=== PATIENT | female | born 1965 | race Caucasian/White ===

== ENCOUNTER 2017-03-03 07:20 | Emergency (ER) | payer BC ==
[2017-03-03] MEDS ORDERED: KETOROLAC TROMETHAMINE 30 MG/ML VIAL IV ONE (07:41)
[2017-03-03] MEDS ORDERED: ONDANSETRON HCL/PF 2 MG/ML VIAL IV ONE ×2 (07:41→11:17)
[2017-03-03] MEDS ORDERED: KETOROLAC TROMETHAMINE 30 MG/ML VIAL ONE (07:42)
[2017-03-03] MEDS ORDERED: ONDANSETRON HCL/PF 2 MG/ML VIAL ONE ×2 (07:42→11:15)
[2017-03-03] MEDS ORDERED: NORMAL SALINE 1,000 ML IV ONE ×2 (07:42→10:45)
--- NOTE | 2017-03-03 07:48 | ERNOTE ---
<Antonio Krishna - Last Filed: 03/03/17 07:57> ER Female HPI Stated Complaint: KIDNEY STONE Time Seen by Provider: 03/03/17 07:46 Source: patient, family Exam Limitations: no limitations Immunizations: IMMUNIZATION HX Immunizations Up to Date Yes Allergies/Adverse Reactions: Allergies Penicillins Allergy (Verified 03/03/17 07:36) Home Medications: HOME MEDICATIONS Tamsulosin HCl [Flomax] 0.4 mg PO DAILY #7 tab 03/03/17 [Last Taken Unknown] oxyCODONE HCL/ACETAMINOPHEN [Percocet 5 MG/325 MG] 1 - 2 tab PO Q6H PRN #15 tab 03/03/17 [Last Taken Unknown] - History of Present Illness Narrative: Left flank pain onset at 06:10. Now in LLQ. Timing: Present: getting worse Quality: Present: severe, sharpness, stabbing Onset Location: Present: left flank Radiation: Present: LLQ Activities at Onset: Present: none Associated Symptoms: Present: urinary frequency Review of Systems - Review of Systems Constitutional: Absent: recent illness, fever EYE: Present: no symptoms reported ENT: Present: no symptoms reported Respiratory: Present: no symptoms reported Cardiology: Present: no symptoms reported Gastrointestinal/Abdominal: Present: See HPI, nausea, vomiting Genitourinary: Present: See HPI, frequency, hematuria. Absent: dysuria Musculoskeletal: Present: no symptoms reported Skin: Present: no symptoms reported Neurological: Present: no symptoms reported Endocrine: Present: no symptoms reported Hematologic/Lymphatic: Present: no symptoms reported Psych: Present: no symptoms reported - Patient's Past Medical History Patient History - Medical: No pertinent hx Patient History - Cardiac/Respiratory: No pertinent hx Patient History - Cancer: No Hx of Cancer Patient History - Surgical Procedures: No surgical history - Social History Smoking Status: Never smoker Have you smoked in the past 12 months: No - Immunizations Immunizations Up to Date: Yes Physical Exam - Physical Exam General Appearance: Present: wd/wn, alert, moderate distress Head Exam: Present: normal inspection, no evidence of injury Respiratory: Present: no respiratory distress, normal breath sounds, lungs clear Cardiovascular/Chest: Present: regular rate, rhythm, no murmur Gastrointestinal/Abdominal: Present: normal bowel sounds, nontender, nondistended, soft Back Exam: Present: normal inspection, no vertebral tenderness Extremity Exam: Present: normal inspection, normal range of motion Neurological Exam: Present: alert, oriented Skin Exam: Present: diaphoresis, pallor Lymphatic Exam: Present: no adenopathy ED Progress - Vital Signs Vital Signs: Vital Signs 03/03/17 07:33 Temperature 35.8 C L Pulse Rate 73 Respiratory 18 Rate Blood Pressure 187/101 O2 Sat by Pulse 98 Oximetry - Progress/Reassessment Chief Complaint: Genitourinary Problem - Transfer of Care Physician Sign Out: Antonio Krishna Receiving Physician: Kelechi Vargas Pending Results: Labs, Pain-control Expected Disposition: Discharge Departure Clinical Impression: Kidney stone on left side - Departure Disposition: Home self-care Condition: Good Instructions: Kidney Stones, [id number] Additional Instructions: You have an appointment with Dr Reid TOMORROW at 12:45, please be there for a re-check. I spoke with her via telephone. Take medications as directed. No driving. Return here if you change your mind about being observed in the hospital, develop fever, increased pain or if your condition worsens or changes in any way. Referrals: Michelle Reid MD [Primary Care Provider] - Prescriptions: oxyCODONE HCL/ACETAMINOPHEN [Percocet 5 MG/325 MG] 1 - 2 tab PO Q6H PRN #15 tab PRN Reason: Pain Tamsulosin HCl [Flomax] 0.4 mg PO DAILY #7 tab <Kelechi Vargas - Last Filed: 03/03/17 12:28> ER Female HPI Immunizations: IMMUNIZATION HX Immunizations Up to Date Yes ED Progress - Results and Orders Patient's Lab Results:: I have reviewed the patient's lab results. - Vital Signs Patient's Vital Signs:: I have reviewed the patient's vital signs. Vital Signs: Vital Signs 03/03/17 03/03/17 03/03/17 07:33 08:14 09:59 Temperature 35.8 C L Pulse Rate 73 55 L 62 Respiratory 18 12 15 Rate Blood Pressure 187/101 184/79 154/86 O2 Sat by Pulse 98 100 96 Oximetry - CT/Ultrasound CT/Ultrasound Narrative: I reviewed official radiology report - Progress/Reassessment Progress Note-Subjective: 03/03/17 12:25 patient checked out to me by Dr Prasad at shift change, please see his note. Patient has 3/7mm left distal UVJ stone c/w her Sx. Elevation of her Lipase but normal amylase. This is of unclear significance but she clearly has acute kidney stone. Patient was feeling much improve. I offered her hospital admission for obs and pain control and further testing but she declines this and wishes to go home. She understands risks and beenfits. I am not sure what the significance of the elevated lipase and normal amylase is in this setting. She understands this but wishes outpatient management. I spoke with Dr Reid her PCP and an office appointment was scheduled for her tommorrow for a re-check. She understands risks and benefits, I stressed warning signs and reasons to return as well as the need for close f/u. I toldf her she could return at any time to be admitted if she changed her mind about being in the hospital.
[2017-03-03 07:57] LABS: Hematocrit 37.8 % (37.0-47.0); Hemoglobin 12.9 gm/dL (12.5-16.0); Mean Cell Volume 87.7 fl (78-100); Mean Corpuscular Hemoglobin 29.9 pg (27-31); Mean Corpuscular Hgb Conc 34.1 g/dl (32-36); Mean Platelet Volume 12.2 fl (6.0-9.5); Neutrophil # 4.4 K/mm3 (1.3-6.0); Neutrophil % 63.1 % (42-75.0); Platelet Count 214 K/mm3 (150-450); Red Blood Count 4.31 M/mm3 (4.2-5.4); Red Cell Distribution Width 12.7 % (11.5-14.0)
[2017-03-03] MEDS ORDERED: HYDROmorphone HCL 1 MG/ML DISP.SYRIN IV ONE ×3 (08:08→10:42)
[2017-03-03] MEDS ORDERED: HYDROmorphone HCL 1 MG/ML DISP.SYRIN ONE ×3 (08:09→10:48)
[2017-03-03 08:12] LABS: Albumin * 3.6 gm/dl (3.4-5.0); Anion Gap 14.8 mmol/L (6.8-13.8); BUN/Creatinine Ratio 14.9 (9.0-21.6); Bilirubin, Total 0.3 mg/dL (0.0-1.1); Potassium 3.8 mmol/L (3.4-4.6); Total Protein 7.6 gm/dL (6.2-8.2)
[2017-03-03 08:54] LABS: Urine Bilirubin Negative (NEGATIVE); Urine Blood Negative /ul (NEGATIVE); Urine Ketone Negative (NEGATIVE); Urine Nitrite Negative (NEGATIVE); Urine Protein Negative (NEGATIVE); Urine Urobilinogen Normal (NORMAL)
[2017-03-03 09:06] LABS: Urine Appearance Clear; Urine Bacteria None Seen; Urine Color Yellow; Urine RBC None Seen /hpf (0-5); Urine WBC None Seen /hpf (0-5)
[2017-03-03] MEDS ORDERED: oxyCODONE HCL/ACETAMINOPHEN 1 TAB TABLET PO ONE (10:42)
[2017-03-03] MEDS ORDERED: TAMSULOSIN HCL 0.4 MG CAP.SR.24H PO ONE ×2 (10:42→10:49)
[2017-03-03] MEDS ORDERED: oxyCODONE HCL/ACETAMINOPHEN 1 TAB TABLET ONE (10:48)
[2017-03-03 12:05] VITALS: BP 146/63
[2017-03-03] MEDS ORDERED: ONDANSETRON 4 MG TAB.RAPDIS ONE (12:17)
[2017-03-03] MEDS ORDERED: ONDANSETRON 4 MG TAB.RAPDIS PO ONE (12:28)
== END 2017-03-03 12:38 | disposition home or self-care (01) ==
LOC: ER 07:20
DX: N20.0 Calculus of kidney (principal)
CPT/HCPCS: 36415; 74176; 80053; 81001; 82150; 83690; 85025; 96374; 96375; 99285; J2405

== ENCOUNTER 2017-03-04 12:44 | Inpatient (IN) | payer BC ==
[2017-03-04] MEDS ORDERED: HYDROmorphone HCL 1 MG/ML DISP.SYRIN IV ONE ×5 (13:00→16:21)
[2017-03-04] MEDS ORDERED: NORMAL SALINE 1,000 ML IV ONE ×2 (13:00→14:37)
[2017-03-04 13:16] LABS: Hematocrit 36.9 % (37.0-47.0); Hemoglobin 12.2 gm/dL (12.5-16.0); Mean Corpuscular Hemoglobin 29.8 pg (27-31); Mean Corpuscular Hgb Conc 33.1 g/dl (32-36); Mean Platelet Volume 12.4 fl (6.0-9.5); Neutrophil # 5.1 K/mm3 (1.3-6.0); Neutrophil % 65.5 % (42-75.0); Platelet Count 193 K/mm3 (150-450); Red Cell Distribution Width 13.2 % (11.5-14.0); White Blood Count 7.8 K/mm3 (4.0-10.5)
[2017-03-04 13:33] LABS: Albumin * 3.6 gm/dl (3.4-5.0); Anion Gap 13.7 mmol/L (6.8-13.8); BUN/Creatinine Ratio 12.4 (9.0-21.6); Bilirubin, Total 0.2 mg/dL (0.0-1.1); Ca. Corrected For Albumin 8.6 mg/dL (8.4-10.2); Calcium * 8.6 mg/dL (7.9-10.9); Carbon Dioxide 25.3 mmol/L (24-32.6); Total Protein 7.5 gm/dL (6.2-8.2)
[2017-03-04] MEDS ORDERED: HYDROmorphone HCL 1 MG/ML DISP.SYRIN ONE ×5 (13:35→16:30)
[2017-03-04] MEDS ORDERED: PROMETHAZINE HCL 25 MG/ML AMPUL IM ONE (13:51)
[2017-03-04] MEDS ORDERED: PROMETHAZINE HCL 25 MG/ML AMPUL ONE (13:52)
[2017-03-04 14:08] LABS: Urine Bilirubin Negative (NEGATIVE); Urine Blood 25 /ul (NEGATIVE); Urine Ketone 5 mg/dL (NEGATIVE); Urine Nitrite Negative (NEGATIVE); Urine Protein Negative (NEGATIVE); Urine Specific Gravity 1.025 SP.GR. (1.005-1.010); Urine Urobilinogen Normal (NORMAL)
[2017-03-04 14:33] LABS: Urine Appearance Clear; Urine Bacteria TRACE; Urine Color Yellow; Urine WBC TRACE /hpf (0-5)
--- NOTE | 2017-03-04 15:36 | ERNOTE ---
ER Female HPI Date of Service: 03/04/17 Stated Complaint: KIDNEY STONE Time Seen by Provider: 03/04/17 12:51 Source: patient, family Exam Limitations: no limitations Immunizations: IMMUNIZATION HX Immunizations Up to Date Yes Allergies/Adverse Reactions: Allergies Penicillins Allergy (Verified 03/04/17 12:56) Home Medications: HOME MEDICATIONS Tamsulosin HCl [Flomax] 0.4 mg PO DAILY #7 tab 03/03/17 [Last Taken Unknown] oxyCODONE HCL/ACETAMINOPHEN [Percocet 5 MG/325 MG] 1 - 2 tab PO Q6H PRN #15 tab 03/03/17 [Last Taken 03/04/17 1200] - History of Present Illness Narrative: Patient presents to the ED for severe left flank and abdominal pain. I saw her yesterady and she had a 3.7mm UVJ stone by CT. her pain has not been controlled as outpatient. She has severe left flank pain now, same as yesterday. Worse throughout the day. Nausea. No CP or SOB. No fever or change in urine. Has not passed the stone, no stone noted in strainer. Timing: Present: constant, getting worse Quality: Present: severe Onset Location: Present: right flank Radiation: Present: LLQ Modifying Factors - (Improves): Present: other - nothing Modifying Factors - (Worsens): Present: other - nothing Associated Symptoms: Present: nausea. Absent: fever/chills Prior Treatment: Present: recently seen, treated by physician Review of Systems - Review of Systems Constitutional: Absent: fever ENT: Absent: sore throat Respiratory: Absent: shortness of breath Cardiology: Absent: chest pain Gastrointestinal/Abdominal: Present: See HPI Genitourinary: Present: See HPI Musculoskeletal: Present: back pain Neurological: Absent: weakness - Patient's Past Medical History Patient History - Medical: Kidney stone Patient History - Cardiac/Respiratory: No pertinent hx Patient History - Cancer: No Hx of Cancer Patient History - Surgical Procedures: No surgical history - Social History Smoking Status: Never smoker - Immunizations Immunizations Up to Date: Yes Physical Exam - Physical Exam General Appearance: Present: alert, moderate distress Head Exam: Present: normal inspection, no evidence of injury Eye Exam: Normal inspection: bilateral, PERRL: bilateral Ears, Nose, Throat: Present: normal ENT inspection Neck: Present: normal inspection Respiratory: Present: no respiratory distress, normal breath sounds, no accessory muscle use, lungs clear Cardiovascular/Chest: Present: regular rate, rhythm, normal peripheral pulses Gastrointestinal/Abdominal: Present: normal bowel sounds, nontender, soft Back Exam: Present: CVA tenderness (L) Extremity Exam: Present: normal inspection Neurological Exam: Present: alert, no motor/sensory deficits Skin Exam: Present: normal color, warm/dry ED Progress - Results and Orders Patient's Lab Results:: I have reviewed the patient's lab results. - Vital Signs Patient's Vital Signs:: I have reviewed the patient's vital signs. Vital Signs: Vital Signs 03/04/17 03/04/17 03/04/17 12:54 14:28 15:02 Temperature 36.3 C L Pulse Rate 59 L 51 L 55 L Respiratory 18 16 12 Rate Blood Pressure 202/87 202/94 196/82 O2 Sat by Pulse 98 98 94 Oximetry - Progress/Reassessment Chief Complaint: Genitourinary Problem Progress Note-Subjective: 03/04/17 15:34 IV fluids and pain medications given. Intractable pain from her kidney stone. Her lipase has normalized. D/E Dr Maciel who will admit. D/E Dr garner's nurse and consult placed, he will see her tomorrow. Pt agreeable to admisson. Departure Clinical Impression: Kidney stone, Intractable pain - Departure Disposition: [facility] Condition: Stable
[2017-03-04] MEDS ORDERED: KETOROLAC TROMETHAMINE 30 MG/ML VIAL IV ONE (16:21)
[2017-03-04] MEDS ORDERED: LORazepam 2 MG/ML DISP.SYRIN IV ONE (16:24)
--- NOTE | 2017-03-04 16:29 | HP ---
Chief Complaint - Chief Complaint Date of Service: 03/04/17 Time of Service: 16:29 Chief Complaint: left flank pain, intractable History of Present Illness: Mayda Carlson, is 51-year-old white female, patient of Dr. Reid, without significant past medical history in the past, who was admitted on 03/04/2017 because of severe left flank pain and abdominal pain. One day prior to admission, the patient suddenly experienced left flank pain described as sharp, 10/10, associated with nausea and vomiting. The pain radiated down to her left lower quadrant. She went to our emergency room where she was found to have a kidney stone, 3.7 mm at the left UVJ junction with moderate hydronephrosis. There was also some stranding of her pancreatic area. Her lipase was 1001. She was given Toradol and IV fluids and was sent home on Flomax and Percocet. The patient was doing fine and and initially thought that he she had passed out the stone as she was no longer experiencing the pain until around 12:30 this afternoon when she again suddenly felt the same left flank pain radiating to her left lower quadrant. She came back to the emergency room where she was admitted for further evaluation and treatment. Her lipase was down to normal this time. Her CT scan doen yesterday also showed a complicated left kidney cyst. Urology was consulted and she is going to be seen tomorrow. She denied any fever or chills, denied any dysuria or increased frequency or urinary retention. She had nausea but no vomiting this time. - Patient's Past Medical History Patient History - Medical: Kidney stone Patient History - Cardiac/Respiratory: No pertinent hx Patient History - Cancer: No Hx of Cancer Patient History - Surgical Procedures: No surgical history - Family History Mother Family History - Medical: Arthritis Family History - Cardiac/Respiratory: Hypertension Family History - Cancer: Other Father Family History - Medical: , Other Family History - Cardiac/Respiratory: History Unknown Family History - Cancer: History Unknown Brother Family History - Medical: Arthritis Family History - Cardiac/Respiratory: No pertinent hx Family History - Cancer: No pertinent family hx Sister Family History - Medical: Arthritis Family History - Cardiac/Respiratory: History Unknown Family History - Cancer: No pertinent family hx - Social History Smoking Status: Never smoker - Immunizations Immunizations Up to Date: Yes Review Of Systems (GEN) - Review of Systems Generalized/Overall Review: Absent: Chills, Fever Respiratory: Absent: Cough, Shortness of Breath Cardiac: Absent: Chest Pain, Palpitations Abdominal: Present: Nausea, Abdominal Pain. Absent: Vomiting Genitourinary: Present: Other - left flank pain. Absent: Urgency, Frequency Immunizations: IMMUNIZATION HX Immunizations Up to Date Yes Allergies/Adverse Reactions: Allergies Allergy/AdvReac Type Severity Reaction Status Date / Time Penicillins Allergy Verified 03/04/17 12:56 Home Medications: HOME MEDICATIONS Tamsulosin HCl [Flomax] 0.4 mg PO DAILY #7 tab 03/03/17 [Last Taken Unknown] oxyCODONE HCL/ACETAMINOPHEN [Percocet 5 MG/325 MG] 1 - 2 tab PO Q6H PRN #15 tab 03/03/17 [Last Taken 03/04/17 1200] Exam - Exam Vital Signs: Vital Signs - Last Taken Temp 36.3 C L 03/04/17 12:54 Pulse 64 03/04/17 15:54 Resp 14 03/04/17 15:54 BP 197/83 03/04/17 15:54 Pulse Ox 93 03/04/17 15:54 Constitutional: Present: Alert, Oriented x3, Cooperative ENT Exam: Present: hearing grossly normal Eye Exam: bilateral eye: normal inspection, PERRL, EOMI Neck: Present: supple Back Exam: Present: CVA tenderness (L) Respiratory: Present: normal breath sounds, No rales, No wheezing Cardiovascular/Chest: Present: regular rate, rhythm, no JVD, no murmur Abdomen: Present: Normal bowel sounds, soft, tender - LLQ, hypoactive Extremity: Present: no pedal edema, no calf tenderness Diagnostic Studies: Laboratory Results WBC 7.8 K/mm3 (4.0-10.5) 03/04/17 13:15 RBC 4.10 M/mm3 (4.2-5.4) L 03/04/17 13:15 Hgb 12.2 gm/dL (12.5-16.0) L 03/04/17 13:15 Hct 36.9 % (37.0-47.0) L 03/04/17 13:15 MCV 90.0 fl (78-100) 03/04/17 13:15 MCH 29.8 pg (27-31) 03/04/17 13:15 MCHC 33.1 g/dl (32-36) 03/04/17 13:15 RDW 13.2 % (11.5-14.0) 03/04/17 13:15 Plt Count 193 K/mm3 (150-450) 03/04/17 13:15 MPV 12.4 fl (6.0-9.5) H 03/04/17 13:15 Immature Gran % (Auto) 0.40 % (0.001-0.429) 03/04/17 13:15 Immature Gran # (Auto) 0.03 K/mm3 (0.000-0.0310) 03/04/17 13:15 Neutrophils % 65.5 % (42-75.0) 03/04/17 13:15 Lymphocytes % 23.3 % (20-51) 03/04/17 13:15 Monocytes % 7.9 % (0.0-9) 03/04/17 13:15 Eosinophils % 2.0 % (0.0-3.0) 03/04/17 13:15 Basophils % 0.9 % (0.0-1.0) 03/04/17 13:15 Nucleated RBC % 0.0 k/mm3 (0-1) 03/04/17 13:15 Neutrophils # 5.1 K/mm3 (1.3-6.0) 03/04/17 13:15 Lymphocytes # 1.8 k/mm3 (1.5-3.5) 03/04/17 13:15 Monocytes # 0.6 k/mm3 (0.0-1.0) 03/04/17 13:15 Eosinophils # 0.2 k/mm3 (0.0-0.7) 03/04/17 13:15 Absolute Basophils 0.1 k/mm3 (0.0-0.1) 03/04/17 13:15 Sodium 139 mmol/L (132-142) 03/04/17 13:15 Plasma Sodium 139 mmol/L (130-142) 03/04/17 13:15 Potassium 4.0 mmol/L (3.4-4.6) 03/04/17 13:15 Chloride 104 mmol/L (97-106) 03/04/17 13:15 Carbon Dioxide 25.3 mmol/L (24-32.6) 03/04/17 13:15 Anion Gap 13.7 mmol/L (6.8-13.8) 03/04/17 13:15 BUN 13 mg/dL (3-23) 03/04/17 13:15 Creatinine 1.05 mg/dL (0.4-1.4) 03/04/17 13:15 Est GFR (Non-Af Amer) 58 mL/min (60-130) L 03/04/17 13:15 BUN/Creatinine Ratio 12.4 (9.0-21.6) 03/04/17 13:15 Random Glucose 98 mg/dL (70-110) D 03/04/17 13:15 Calcium 8.6 mg/dL (7.9-10.9) 03/04/17 13:15 Calcium Adj for Albumin 8.6 mg/dL (8.4-10.2) 03/04/17 13:15 Total Bilirubin 0.2 mg/dL (0.0-1.1) 03/04/17 13:15 AST 20 U/L (0-48) 03/04/17 13:15 ALT 21 U/L (19-67) 03/04/17 13:15 Alkaline Phosphatase 83 U/L (50-170) 03/04/17 13:15 Total Protein 7.5 gm/dL (6.2-8.2) 03/04/17 13:15 Albumin 3.6 gm/dl (3.4-5.0) 03/04/17 13:15 Lipase 143 U/L (73-393) 03/04/17 13:15 Urine Color Yellow 03/04/17 13:25 Urine Appearance Clear 03/04/17 13:25 Urine pH 6.0 pH (5.0-7.0) 03/04/17 13:25 Ur Specific Emma 1.025 SP.GR. (1.005-1.010) 03/04/17 13:25 Urine Protein Negative mg/dL (NEGATIVE) 03/04/17 13:25 Urine Glucose (UA) Negative mg/dL (NEGATIVE) 03/04/17 13:25 Urine Ketones 5 mg/dL (NEGATIVE) 03/04/17 13:25 Urine Blood 25 /ul (NEGATIVE) H 03/04/17 13:25 Urine Nitrate Negative (NEGATIVE) 03/04/17 13:25 Urine Bilirubin Negative mg/dl (NEGATIVE) 03/04/17 13:25 Urine Urobilinogen Normal EU/dl (NORMAL) 03/04/17 13:25 Ur Leukocyte Esterase Negative /ul (NEGATIVE) 03/04/17 13:25 Urine RBC 5-10 /hpf (0-5) H 03/04/17 13:25 Urine WBC Trace /hpf (0-5) H 03/04/17 13:25 Ur Epithelial Cells 0-5 /hpf (0-5) 03/04/17 13:25 Urine Bacteria Trace (NONE) 03/04/17 13:25 Urine Culture Comments No culture indicated 03/04/17 13:25 Assessment/Plan - Assessment/Plan (1) Intractable pain Assessment: due to renal colic from kidney stone. will continue with pain control. Problem: Acute (2) Kidney stone on left side Assessment: 3.7 mm left UVJ with mpderate hydropnephrosis. Will continue with IVF and pain control. will strain urine. Problem: Acute (3) Renal cyst Assessment: complicated. will do GEETHA. Problem: Acute
[2017-03-04] MEDS ORDERED: KETOROLAC TROMETHAMINE 30 MG/ML VIAL ONE (16:31)
[2017-03-04] MEDS: NORMAL SALINE 1,000 ML IV PRN (17:40)
[2017-03-04] MEDS: KETOROLAC TROMETHAMINE 15 MG/ML VIAL IV PRN (20:08)
[2017-03-04] MEDS: HYDROmorphone HCL 1 MG/ML DISP.SYRIN IV PRN (22:37)
[2017-03-04] MEDS ORDERED: ONDANSETRON HCL/PF 2 MG/ML VIAL ONE (22:49)
[2017-03-04] MEDS: ONDANSETRON HCL/PF 2 MG/ML VIAL IV PRN (22:53)
[2017-03-05] MEDS: HYDROmorphone HCL 1 MG/ML DISP.SYRIN IV PRN ×5 (00:01→15:11)
[2017-03-05] MEDS: NORMAL SALINE 1,000 ML IV PRN ×3 (00:02→15:11)
[2017-03-05] MEDS: KETOROLAC TROMETHAMINE 15 MG/ML VIAL IV PRN (03:35)
[2017-03-05] MEDS ORDERED: ONDANSETRON HCL/PF 2 MG/ML VIAL IV ONE (03:46)
[2017-03-05 06:07] LABS: Hematocrit 33.8 % (37.0-47.0); Mean Cell Volume 90.4 fl (78-100); Mean Corpuscular Hemoglobin 29.4 pg (27-31); Mean Corpuscular Hgb Conc 32.5 g/dl (32-36); Mean Platelet Volume 12.5 fl (6.0-9.5); Neutrophil # 9.1 K/mm3 (1.3-6.0); Neutrophil % 83.2 % (42-75.0); Platelet Count 168 K/mm3 (150-450); Red Blood Count 3.74 M/mm3 (4.2-5.4); Red Cell Distribution Width 13.1 % (11.5-14.0); White Blood Count 10.9 K/mm3 (4.0-10.5)
[2017-03-05] MEDS ORDERED: ONDANSETRON 4 MG TAB.RAPDIS PO PRN (06:09)
[2017-03-05 06:22] LABS: Anion Gap 12.4 mmol/L (6.8-13.8); BUN/Creatinine Ratio 10.8 (9.0-21.6); Calcium * 8.4 mg/dL (7.9-10.9); Carbon Dioxide 25.6 mmol/L (24-32.6); Estimated Creat Clear 42.6
[2017-03-05] MEDS: ONDANSETRON HCL/PF 2 MG/ML VIAL IV PRN (07:16)
[2017-03-05] MEDS ORDERED: HYDROmorphone HCL 1 MG/ML DISP.SYRIN IV PRN (08:22)
--- NOTE | 2017-03-05 08:26 | PN ---
Subjective - Date and Time Seen Date: 03/05/17 Time: 08:22 Subjective Narrative: Patient still with pain. Has not passed the stone yet . Objective - Review of Systems Generalized/Overall Review: Denies: Chills, Fever Respiratory: Denies: Cough, Shortness of Breath Cardiac: Denies: Chest Pain, Edema Abdominal: Reports: Abdominal Pain. Denies: Nausea, Vomiting Genitourinary Symptoms: Reports: Other - flank pain. Denies: Urgency, Frequency Musculoskeletal Complaints: Denies: Joint Pain - Vitals Vitals: Last Vital Signs Temp 36.7 C 03/05/17 03:00 Pulse 55 L 03/05/17 03:00 Resp 18 03/05/17 03:00 BP 181/94 03/05/17 03:00 Pulse Ox 98 03/05/17 03:00 - Abnormal Lab Findings Abnormal Lab Findings: Abnormal Lab Results 03/05/17 03/05/17 Range/Units 06:01 06:01 WBC 10.9 H D (4.0-10.5) K/mm3 RBC 3.74 L (4.2-5.4) M/mm3 Hgb 11.0 L (12.5-16.0) gm/dL Hct 33.8 L (37.0-47.0) % MPV 12.5 H (6.0-9.5) fl Immature Gran % (Auto) 0.50 H (0.001-0.429) % Immature Gran # (Auto) 0.05 H (0.000-0.0310) K/mm3 Neutrophils % 83.2 H (42-75.0) % Lymphocytes % 8.6 L (20-51) % Neutrophils # 9.1 H (1.3-6.0) K/mm3 Lymphocytes # 0.9 L (1.5-3.5) k/mm3 Est GFR (Non-Af Amer) 55 L (60-130) mL/min - Exam Constitutional: Present: Alert, Oriented x3, Cooperative ENT Exam: Present: hearing grossly normal Neck: Present: supple Respiratory: Present: normal breath sounds, No rales, No wheezing Cardiovascular/Chest: Present: regular rate, rhythm, no JVD, no murmur Abdomen: Present: Normal bowel sounds, soft, nondistended, tender - slightly tender , LLQ Extremity: Present: no pedal edema, no calf tenderness Assessment/Plan - Problems/Diagnosis (1) Intractable pain Problem: Acute Narrative: continue and will increaase her pain medication. continue with IVF. await Urology consult. (2) Kidney stone on left side Problem: Acute Narrative: awaiting Urology consult ADDENDUM: I was able to talk to Dr. Anders- continue with IVF and pain control. He will see the patient tomorrow. (3) Renal cyst Problem: Acute Narrative: complicated . follow up GEETHA results. (4) Elevated BP without diagnosis of hypertension Problem: Acute Narrative: likely due to pain. will increase dilaudid. will d/c toradol as NSAIDS can increase BP.
[2017-03-05 12:29] LABS: Urine Bilirubin Negative (NEGATIVE); Urine Blood 50 /ul (NEGATIVE); Urine Ketone 5 mg/dL (NEGATIVE); Urine Nitrite Negative (NEGATIVE); Urine Protein Negative (NEGATIVE); Urine Urobilinogen Normal (NORMAL)
[2017-03-05 12:38] LABS: Urine Appearance Slightly Cloudy; Urine Bacteria TRACE; Urine Color Yellow; Urine RBC None Seen /hpf (0-5); Urine WBC TRACE /hpf (0-5); Urine Yeast TRACE
[2017-03-05] MEDS: TAMSULOSIN HCL 0.4 MG CAP.SR.24H PO SCH (20:33)
[2017-03-06] MEDS: ONDANSETRON HCL/PF 2 MG/ML VIAL IV PRN (00:08)
[2017-03-06] MEDS: HYDROmorphone HCL 1 MG/ML DISP.SYRIN IV PRN ×2 (00:08→11:48)
[2017-03-06] MEDS: NORMAL SALINE 1,000 ML IV PRN ×3 (01:46→16:22)
[2017-03-06] MEDS ORDERED: ACETAMINOPHEN 325 MG TABLET PO ONE (07:43)
[2017-03-06] MEDS ORDERED: ONDANSETRON HCL/PF 2 MG/ML VIAL IV ONE (12:21)
[2017-03-06] MEDS ORDERED: HYDROmorphone HCL 2 MG/ML VIAL IV ONE (12:21)
[2017-03-06] MEDS ORDERED: NORMAL SALINE 1,000 ML IV ONE (13:10)
--- NOTE | 2017-03-06 13:11 | PN ---
Progess Note - Interim Narrative: 03/06/17 13:10 Continues to have left flank pain. Going for cystoscopy now.
[2017-03-06] MEDS ORDERED: ENOXAPARIN SODIUM 40 MG/0.4 ML SYRG SC SCH (13:45)
[2017-03-06] MEDS ORDERED: amLODIPine BESYLATE 5 MG TABLET PO ONE (16:06)
--- NOTE | 2017-03-06 16:06 | PN ---
Subjective - Date and Time Seen Date: 03/06/17 Time: 15:57 Subjective Narrative: patient is awake. says she is pain free . had stone extraction done by Dr. Anders. BP is 160/103. Objective - Review of Systems Generalized/Overall Review: Denies: Chills, Fever Respiratory: Reports: Other - hoarse voice. Denies: Cough, Shortness of Breath Cardiac: Denies: Chest Pain, Edema, Palpitations Abdominal: Denies: Nausea, Vomiting Genitourinary Symptoms: Denies: Urgency, Frequency Musculoskeletal Complaints: Denies: Joint Pain - Vitals Vitals: Last Vital Signs Temp 36.5 C 03/06/17 15:13 Pulse 67 03/06/17 15:13 Resp 16 03/06/17 15:13 BP 178/98 03/06/17 15:13 Pulse Ox 96 03/06/17 15:13 - Exam Constitutional: Present: Alert, Oriented x3, Cooperative ENT Exam: Present: hearing grossly normal Neck: Present: supple Respiratory: Present: decreased breath sounds, No rales, No wheezing Cardiovascular/Chest: Present: regular rate, rhythm, no JVD, no murmur Abdomen: Present: Normal bowel sounds, soft, nontender, nondistended Extremity: Present: no pedal edema, no calf tenderness Assessment/Plan - Problems/Diagnosis (1) Intractable pain Problem: Suspected (2) Kidney stone on left side Problem: Acute Narrative: s/p cystoscopy and stone extraction (3) Renal cyst Problem: Acute Narrative: complicated renal cyst (4) Elevated BP without diagnosis of hypertension Problem: Acute Narrative: will try her on a BP medication overnight . will defer discharge for now.
[2017-03-06 17:31] LABS: Hematocrit 33.9 % (37.0-47.0); Hemoglobin 11.1 gm/dL (12.5-16.0); Mean Cell Volume 90.2 fl (78-100); Mean Corpuscular Hemoglobin 29.5 pg (27-31); Mean Corpuscular Hgb Conc 32.7 g/dl (32-36); Mean Platelet Volume 12.4 fl (6.0-9.5); Neutrophil # 8.9 K/mm3 (1.3-6.0); Neutrophil % 92.3 % (42-75.0); Platelet Count 163 K/mm3 (150-450); Red Blood Count 3.76 M/mm3 (4.2-5.4); Red Cell Distribution Width 13.1 % (11.5-14.0); White Blood Count 9.7 K/mm3 (4.0-10.5)
[2017-03-06 17:47] LABS: Anion Gap 9.9 mmol/L (6.8-13.8); BUN/Creatinine Ratio 7.6 (9.0-21.6); Calcium * 8.5 mg/dL (7.9-10.9); Carbon Dioxide 28.6 mmol/L (24-32.6); Estimated Creat Clear 51.4; Potassium 3.5 mmol/L (3.4-4.6)
[2017-03-06] MEDS: TAMSULOSIN HCL 0.4 MG CAP.SR.24H PO SCH (20:24)
[2017-03-07] MEDS: NORMAL SALINE 1,000 ML IV PRN (02:22)
[2017-03-07] MEDS ORDERED: MAGNESIUM HYDROXIDE 30 ML UDC PO ONE (08:02)
[2017-03-07] MEDS ORDERED: amLODIPine BESYLATE 10 MG TABLET PO SCH (09:15)
--- NOTE | 2017-03-07 10:29 | DS ---
(1) Intractable pain Problem: Resolved (2) Kidney stone on left side Diagnosis(s): s/p cystoscopy and removal of stone with stent placement. Problem: Resolved (3) Renal cyst Problem: Acute (4) Elevated BP without diagnosis of hypertension Diagnosis(s): r/o new onset HTN Problem: Acute Description of Stay: Mayda Carlson, is 51-year-old white female, patient of Dr. Reid, without significant past medical history in the past, who was admitted on 03/04/2017 because of severe left flank pain and abdominal pain. One day prior to admission, the patient suddenly experienced left flank pain described as sharp, 10/10, associated with nausea and vomiting. The pain radiated down to her left lower quadrant. She went to our emergency room where she was found to have a kidney stone, 3.7 mm at the left UVJ junction with moderate hydronephrosis. There was also some stranding of her pancreatic area. Her lipase was 1001. She was given Toradol and IV fluids and was sent home on Flomax and Percocet. The patient was doing fine and and initially thought that he she had passed out the stone as she was no longer experiencing the pain until around 12:30 pm of the morning of admission when she again suddenly felt the same left flank pain radiating to her left lower quadrant. She came back to the emergency room where she was admitted for further evaluation and treatment. Her lipase was down to normal this time. Her CT scan done yesterday also showed a complicated left kidney cyst. She denied any fever or chills, denied any dysuria or increased frequency or urinary retention. She had nausea but no vomiting , Urology was consulted and she underwent cystoscopy with retrograde pyelogram , left ureteroscopy with basket extraction of stone and stent placement. Her BP also started elevating likely due to pain as she did not have a H/O HTN. She continued to have elevated BP after stone removal and so she was started on Amlopidine. She is stable to be discharge today. She will bring her BP diary when she follows up with her PCP. Procedures Performed: see notes below List Procedures: cystoscopy with retrograde pyelogram, left ureteroscopy with basket extraction of stone and stent placement Discharge Disposition: Home self care Disposition: Home self-care Condition: Stable Discharge Activity: Activity as tolerated Discharge Diet: Low salt Referrals: Michelle Reid MD [Primary Care Provider] - Problem Oriented Discharge Instructions to Patient/Family: Kidney Stones, Easy- to-Read, Form - Blood Pressure Record Sheet, Hypertension, [id number], Managing Your High Blood Pressure Additional Patient Instructions (free text): Follow up appointment with on 03/10/17 at 10:15am at the [place] office. Follow up with her PCP with BP diary. [facility] will call you on Thursday with follow up appointment. Prescriptions (Any new or edited meds): Amlodipine Besylate 10 mg PO DAILY #30 tablet Complete Home Medications List: Complete Home Medication List: Tamsulosin HCl [Flomax] 0.4 mg PO DAILY #7 tab 03/03/17 oxyCODONE HCL/ACETAMINOPHEN [Percocet 5 MG/325 MG] 1 - 2 tab PO Q6H PRN #15 tab 03/03/17 Ondansetron [Zofran Odt] 4 mg PO Q8H PRN 03/04/17 Amlodipine Besylate 10 mg PO DAILY #30 tablet 03/07/17
[2017-03-07 13:13] VITALS: BP 160/81
[2017-03-10 09:55] LABS: Stone Composition 2 DNR
== END 2017-03-07 14:02 | disposition home or self-care (01) | DRG 669 ==
LOC: ER 12:44 → MS 15:23 → OBSVTOIN 03-05 10:30
PROVIDERS: ADMIT Internal Medicine; ATTEND Internal Medicine
PROC: 0T778DZ Dilation of Left Ureter with Intraluminal Device, Via Natural or Artificial Opening Endoscopic (ICD-10-PCS; 2017-03-06)
PROC: 0TC78ZZ Extirpation of Matter from Left Ureter, Via Natural or Artificial Opening Endoscopic (ICD-10-PCS; principal; 2017-03-06 14:20)
DX: N13.2 Hydronephrosis with renal and ureteral calculous obstruction (principal); N28.1 Cyst of kidney, acquired; R03.0 Elevated blood-pressure reading, without diagnosis of hypertension
CPT/HCPCS: 36415; 52320; 52332; 74420; 76000; 76770; 80048; 80053; 81001; 82365; 83690; 85025; 87040; 93005; 96372; 96374; 96375; 99284; G0378; J2405